=== PATIENT | female | born 1960 | race Caucasian/White ===

== ENCOUNTER 2018-11-14 19:21 | Emergency (ER) | payer OTHER ==
[~2018-11-14] VITALS: Ht 152.4 cm; Wt 66.2 kg
[~2018-11-14 19:21] MED LIST: HYDR-2761 PO; ONDA4TAB10 SL
[2018-11-14 20:47] VITALS: BP 172/76
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
== END 2018-11-14 21:47 | disposition home or self-care (01) ==
LOC: ER 19:21
DX: T24.102A Burn of first degree of unspecified site of left lower limb, except ankle and foot, initial encounter (principal); T24.101A Burn of first degree of unspecified site of right lower limb, except ankle and foot, initial encounter; T22.112A Burn of first degree of left forearm, initial encounter; T22.111A Burn of first degree of right forearm, initial encounter; K21.9 Gastro-esophageal reflux disease without esophagitis; E78.00 Pure hypercholesterolemia, unspecified; I10 Essential (primary) hypertension; Z87.442 Personal history of urinary calculi; F17.210 Nicotine dependence, cigarettes, uncomplicated; X08.8XXA Exposure to other specified smoke, fire and flames, initial encounter; Y93.89 Activity, other specified; Y92.89 Other specified places as the place of occurrence of the external cause; Y99.8 Other external cause status
CPT/HCPCS: 99281